=== PATIENT | male | born 1960 | race Hispanic/Latino ===

== ENCOUNTER 2018-02-13 20:13 | Emergency (ER) | payer BC, OTHER | END 2018-02-13 20:34 | disposition home or self-care (01) | LOC: SCSER 20:13 | DX: I10 Essential (primary) hypertension (principal); E78.00 Pure hypercholesterolemia, unspecified | CPT/HCPCS: 99283 ==

== ENCOUNTER 2024-04-28 18:40 | Inpatient (IN) | payer BC ==
[2024-04-28] MEDS ORDERED: Acetaminophen 650 MG Suppository PR PRN (22:25)
[2024-04-28] MEDS ORDERED: Ondansetron ODT 4 MG TAB PO PRN (22:25)
[2024-04-28] MEDS ORDERED: Ondansetron PF 4 MG/2 ML Vial IVP PRN (22:25)
[2024-04-28] MEDS ORDERED: Acetaminophen 325 MG TAB PO PRN (22:25)
[2024-04-28 23:38] VITALS: BMI 22.1
[2024-04-29] MEDS: Ketorolac Tromethamine 30 MG (1 mL) VIAL IVP PRN (00:16)
[2024-04-29] MEDS: Tamsulosin HCl 0.4 MG CAP PO SCH ×2 (00:16→20:27)
[2024-04-29] MEDS: Zolpidem Tartrate 5 MG TAB PO SCH ×3 (00:17→21:45)
[2024-04-29] MEDS: Fenofibrate Nanocrystallized 145 MG TAB PO SCH ×2 (00:17→20:27)
[2024-04-29 04:29] LABS: #Basophils Less than 0.03 10x3/uL (0.0-0.2); %Basophils 0.1 % (0.0-1.0); %Eosinophils 0.4 % (0.0-10.0); %Lymphocytes 12.7 % (21.0-51.0); %Monocytes 6.9 % (0.0-10.0); %Neutrophils 79.5 % (42.0-75.0); Hematocrit 40.4 % (42.0-52.0); Mean Corpuscular HGB CONC 34.7 g/dL (32.0-36.0); Mean Corpuscular Hemoglobin 31.5 pg (27.0-31.0); Mean Corpuscular Volume 90.8 fL (78.0-98.0); Mean Platelet Volume 8.8 fL (7.4-10.4); Platelet Count 186 10x3/uL (130-400); RBC Distribution Width 13.5 % (11.5-14.5); Red Blood Cell (RBC) Count 4.45 mill/uL (4.70-6.10)
[2024-04-29 04:41] LABS: Anion Gap 10 mmol/L (10-20); BUN (Urea Nitrogen) 19 mg/dL (8.4-25.7); Calc. Creatinine Clearance 61 mL/min (70-130); Calcium 8.7 mg/dL (7.8-10.44); Carbon Dioxide 24 mmol/L (23-31); Chloride 110 mmol/L (98-107); Estimated GFR 66; Glucose 97 mg/dL (80-115); Potassium 3.7 mmol/L (3.5-5.1); Sodium 140 mmol/L (136-145)
[2024-04-29] MEDS: Losartan 25 MG TAB PO SCH (09:14)
[2024-04-29] MEDS: PARoxetine 20 MG TAB PO SCH (09:15)
[2024-04-29 13:02] VITALS: BMI 22.1
[2024-04-29] MEDS: Hydrochlorothiazide 25 MG TAB PO SCH (18:28)
[2024-04-29] MEDS ORDERED: Zolpidem Tartrate 5 MG TAB PO SCH ×2 (21:00)
[2024-04-29] MEDS ORDERED: Fenofibrate Nanocrystallized 145 MG TAB PO SCH (21:00)
[2024-04-29] MEDS ORDERED: Tamsulosin HCl 0.4 MG CAP PO SCH (21:00)
[2024-04-30 04:32] LABS: #Basophils Less than 0.03 10x3/uL (0.0-0.2); %Basophils 0.3 % (0.0-1.0); %Eosinophils 0.9 % (0.0-10.0); %Lymphocytes 12.8 % (21.0-51.0); %Monocytes 7.1 % (0.0-10.0); %Neutrophils 78.6 % (42.0-75.0); Hematocrit 41.5 % (42.0-52.0); Hemoglobin 14.5 g/dL (14.0-18.0); Mean Corpuscular HGB CONC 34.9 g/dL (32.0-36.0); Mean Corpuscular Hemoglobin 31.3 pg (27.0-31.0); Mean Corpuscular Volume 89.6 fL (78.0-98.0); Mean Platelet Volume 9.1 fL (7.4-10.4); Platelet Count 172 10x3/uL (130-400); RBC Distribution Width 13.6 % (11.5-14.5); Red Blood Cell (RBC) Count 4.63 mill/uL (4.70-6.10)
[2024-04-30 05:07] LABS: Anion Gap 11 mmol/L (10-20); BUN (Urea Nitrogen) 21 mg/dL (8.4-25.7); Calc. Creatinine Clearance 55 mL/min (70-130); Calcium 9.3 mg/dL (7.8-10.44); Carbon Dioxide 24 mmol/L (23-31); Chloride 107 mmol/L (98-107); Estimated GFR 57; Glucose 94 mg/dL (80-115); Potassium 3.6 mmol/L (3.5-5.1); Sodium 138 mmol/L (136-145)
[2024-04-30] MEDS: Hydrochlorothiazide 25 MG TAB PO SCH (08:49)
[2024-04-30 12:11] VITALS: BP 162/80; TEMP 98
== END 2024-04-30 14:40 | disposition home or self-care (01) | DRG 310 ==
LOC: OBS 21:21 → OBSVTOIN 04-29 18:15
PROVIDERS: ADMIT Family Medicine; ATTEND Family Medicine
DX: R00.1 Bradycardia, unspecified (principal); I10 Essential (primary) hypertension; N40.0 Benign prostatic hyperplasia without lower urinary tract symptoms; E78.00 Pure hypercholesterolemia, unspecified; Z98.890 Other specified postprocedural states; T44.7X5A Adverse effect of beta-adrenoreceptor antagonists, initial encounter; Z79.899 Other long term (current) drug therapy; F41.9 Anxiety disorder, unspecified
CPT/HCPCS: 36415; 36416; 71045; 80048; 80053; 83735; 84443; 84484; 85025; 93005; 96374; 96375; 96376; G0378; J0612; J1611; J1885; J2405

== ENCOUNTER 2024-05-23 10:18 | Outpatient (CLI) | payer BC | END 2024-05-23 10:19 | disposition home or self-care (01) | LOC: SCSMRI 10:18 | PROVIDERS: ATTEND Otolaryngology Otolaryngic Allergy | DX: H93.13 Tinnitus, bilateral (principal); H91.8X2 Other specified hearing loss, left ear | CPT/HCPCS: 70553; 76376 ==